=== PATIENT | male | born 1965 | race African-American/Black ===

== ENCOUNTER 2020-08-28 18:02 | Inpatient (IN) | payer MEDICARE, MEDICAID ==
[~2020-08-28] VITALS: Ht 185.4 cm; Wt 104.3 kg
--- NOTE | 2020-08-28 09:25 | NUR ---
NURSE NOTES: Received hand-off report from HANSA Orellana RN. Patient arrived to tele 214-1 without any incident, able to ambulate, steady gait with some SOB, lung sounds rhonchi throughout lung perkins, applied 4L NC, oxygen saturation 95%, BP: 112/71, HR: 108, respirations: 18. Alert and oriented x4, weak 3/5 strength bilateral feet, 3/5 strength bilateral hands. Applied groundwater monitoring technician and IV on right arm 20g patent, flushing, no bleeding, no infiltration, no pain, no tenderness. Will contact Dr. Peres of patient arrival and admission orders. Addendum: 08/28/20 at 2229 by Teresa Crum RN This was suppose to be timed today at 21:25.
[2020-08-28 18:30] VITALS: BP 136/79
--- NOTE | 2020-08-28 18:30 | NUR ---
ED Nurse Note: Pt BIBA 68 for SOB placed on NC, 92% 5L NC. Pt lungs bilateral expiratory wheezing to auscultation. Pt is alert and orientedx4, ambulatory. Pt set up on monitor. IV established. Blood sent. COVID swab sent to lab,.
--- NOTE | 2020-08-28 18:53 | Emergency Room Report ---
History of Present Illness General Chief Complaint: Upper Respiratory Illness Source: EMS Present Illness HPI Disclaimer: Please note that this report is being documented using DRAGON technology. This can lead to erroneous entry secondary to incorrect interpretation by the dictating instrument. HPI: 55-year-old male history of HIV presents for evaluation of shortness of breath and fatigue. Symptoms present approximately 1 week. He reports global weakness and fatigue and hollow extremities, decreased appetite, intermittent fevers that are responding to Tylenol. Reports shortness of breath without chest pain or cough. Denies sore throat, nasal congestion, nausea, vomiting. EMS stated he was hypoxic in the low 90s and started on nasal cannula which improved his saturations. Recent travel to [place]. He notes multiple sick contacts recently. He does not believe any of them are COVID-19 positive. Patient is compliant with antiretroviral medication reports an undetectable viral load. Also treated for colon cancer status post chemo and radiation, therapy is completed. 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 EOMI. Cardiovascular: Tachycardic Resp: Increased work of breathing with mild tachypnea. Audible wheezes. 96% on 2 L nasal cannula Abdomen: Abdomen is soft, nondistended. Nontender Skin: Intact. No abrasions, laceration or rash over the exposed skin MSK: Normal tone and bulk. Moving all extremities. No obvious deformity. Neuro: Awake and alert. Mentating appropriately. Procedures Critical Care Time Critical Care Time Total critical care time: Approximately 45 minutes Due to a high probability of clinically significant, life threatening deterioration, the patient required the highest level of preparedness to intervene emergently and I personally spent this critical care time directly and personally managing the patient. This critical care time included obtaining a history, examining the patient, pulse oximetry, ordering and reviewing studies, ordering treatments, evaluating response to treatment and updating management plan as needed, frequent reassessment and discussion with other providers as well as arranging for ultimate disposition. This critical to care time was performed to assess and manage the high probability of life-threatening deterioration that could result in multiorgan failure. This critical care time is separate from the separately billable procedures and treating other patients. Medical Decision Making Diagnostic Impression: Primary Impression: Pneumonia Additional Impressions: Tachycardia Elevated d-dimer Elevated troponin ER Course 55-year-old male history of HIV presents for evaluation of fatigue, shortness of breath and mild hypoxia. Concern for viral syndrome, pneumonia, bronchitis, COVID-19 infection among others. He is tachycardic and requiring 2 L nasal cannula maintain oxygen saturation greater than 93%. Chest x-ray concerning for pneumonia. COVID-19 rapid test is negative. Labs show slightly elevated white count 11.3 with a neutrophil predominance. Chemistry largely within normal limits of some signs of mild dehydration. Troponin is elevated 0.116. EKG is nonischemic. Inflammatory markers elevated. Elevation in BN peptide as well. Urinalysis unremarkable. D-dimer elevated at 2.0. Patient given broad-spectrum antibiotics, Decadron, Lovenox. He will be admitted to panel physician, Dr. Peres. Laboratory Tests Test 08/28/20 18:36 08/28/20 18:49 08/28/20 21:00 White Blood Count 11.3 K/UL (4.8-10.8) H Red Blood Count 4.37 M/UL (4.70-6.10) L Hemoglobin 14.4 G/DL (14.2-18.0) Hematocrit 44.0 % (42.0-52.0) Mean Corpuscular Volume 101 FL (80-99) H Mean Corpuscular Hemoglobin 32.9 PG (27.0-31.0) H Mean Corpuscular Hemoglobin Concent 32.7 G/DL (32.0-36.0) Red Cell Distribution Width 14.4 % (11.6-14.8) Platelet Count 199 K/UL (150-450) Mean Platelet Volume 8.1 FL (6.5-10.1) Neutrophils (%) (Auto) 78.5 % (45.0-75.0) H Lymphocytes (%) (Auto) 11.2 % (20.0-45.0) L Monocytes (%) (Auto) 8.8 % (1.0-10.0) Eosinophils (%) (Auto) 0.3 % (0.0-3.0) Basophils (%) (Auto) 1.2 % (0.0-2.0) Prothrombin Time 15.4 SEC (9.30-11.50) H Prothrombin Time INR 1.4 (0.9-1.1) H Activated Partial Thromboplast Time 33 SEC (23-33) D-Dimer 2.01 mg/L FEU (0.00-0.49) H Sodium Level 130 MMOL/L (136-145) L Potassium Level 3.3 MMOL/L (3.5-5.1) L Chloride Level 95 MMOL/L (98-107) L Carbon Dioxide Level 24 MMOL/L (21-32) Anion Gap 11 mmol/L (5-15) Blood Urea Nitrogen 9 mg/dL (7-18) Creatinine 1.3 MG/DL (0.55-1.30) Estimated Glomerular Filtration Rate 57.7 mL/min (>60) Glucose Level 129 MG/DL (74-106) H Calcium Level 8.7 MG/DL (8.5-10.1) Magnesium Level 1.8 MG/DL (1.8-2.4) Ferritin 1678 NG/ML (8-388) H Total Bilirubin 1.0 MG/DL (0.2-1.0) Aspartate Amino Transferase (AST) 28 U/L (15-37) Alanine Aminotransferase (ALT) 14 U/L (12-78) Alkaline Phosphatase 145 U/L (46-116) H Lactate Dehydrogenase 487 U/L (81-234) H Total Creatine Kinase 186 U/L (26-308) Creatine Kinase MB 2.3 NG/ML (0.0-3.6) Creatine Kinase MB Relative Index 1.2 Troponin I 0.116 ng/mL (0.000-0.056) C-Reactive Protein, Quantitative 48.4 mg/dL (0.00-0.90) H Pro-B-Type Natriuretic Peptide 7198 pg/mL (0-125) H Total Protein 7.6 G/DL (6.4-8.2) Albumin 2.6 G/DL (3.4-5.0) L Globulin 5.0 g/dL Lipase 81 U/L (73-393) Lactic Acid Level 1.50 mmol/L (0.4-2.0) Urine Color Yellow Urine Appearance Clear Urine pH 6 (4.5-8.0) Urine Specific [place] 1.005 (1.005-1.035) Urine Protein 2+ (NEGATIVE) H Urine Glucose (UA) Negative (NEGATIVE) Urine Ketones Negative (NEGATIVE) Urine Blood 1+ (NEGATIVE) H Urine Nitrite Negative (NEGATIVE) Urine Bilirubin Negative (NEGATIVE) Urine Urobilinogen 4 MG/DL (0.0-1.0) H Urine Leukocyte Esterase 1+ (NEGATIVE) H Urine RBC 0-2 /HPF (0 - 0) H Urine WBC 0-2 /HPF (0 - 0) Urine Squamous Epithelial Cells Occasional /LPF Urine Bacteria Occasional /HPF (NONE) Microbiology Date/Time Source Procedure Growth Status 08/28/20 18:39 Nasopharynx SARS-CoV-2 RdRp Gene Assay - Final Complete EKG Diagnostic Results Troponin ordered: Yes When was troponin ordered?: Aug 28, 2020 EKG Time: 18:53 Rate: tachycardiac Rhythm: NSR ST Segments: no acute changes Other Impression Sinus tachycardia with a slight rightward axis Rhythm Strip Diag. Results Rhythm Strip Time: 18:53 EP Interpretation: yes Rate: 120s Rhythm: NSR, no PVC's, no ectopy Chest X-Ray Diagnostic Results Chest X-Ray Diagnostic Results : Chest X-Ray Ordered: Yes # of Views/Limited/Complete: 1 View Indication: Shortness of Breath EP Interpretation: Yes Interpretation: other - Bilateral patchy opacities consistent with pneumonia Impression: Other - Bilateral pneumonia Electronically Signed by: Electronically signed by Dr. Parker Srivastava Last Vital Signs Date Time Temp Pulse Resp B/P (MAP) Pulse Ox O2 Delivery O2 Flow Rate FiO2 08/28/20 17:57 98.2 120 16 142/80 (100) 93 Room Air Disposition: ADMITTED INPATIENT Condition: Serious Parker Srivastava MD Aug 28, 2020 18:53
[2020-08-28] MEDS ORDERED: dexAMETHasone 10mg/ml Inj IV ONE (19:00)
[2020-08-28 19:03] LABS: BASOPHILS % (AUTO) 1.2 % (0.0-2.0); EOSINOPHILS % (AUTO) 0.3 % (0.0-3.0); HEMOGLOBIN 14.4 G/DL (14.2-18.0); LYMPHOCYTES % (AUTO) 11.2 % (20.0-45.0); MEAN CORPUSCULAR VOLUME 101 FL (80-99); MONOCYTES % (AUTO) 8.8 % (1.0-10.0); NEUTROPHILS % (AUTO) 78.5 % (45.0-75.0); PLATELET COUNT 199 K/UL (150-450); RED BLOOD COUNT 4.37 M/UL (4.70-6.10); RED CELL DISTRIBUTION WIDTH 14.4 % (11.6-14.8); WHITE BLOOD COUNT 11.3 K/UL (4.8-10.8)
[2020-08-28 19:13] LABS: ANION GAP 11 mmol/L (5-15); BLOOD UREA NITROGEN 9 mg/dL (7-18); CALCIUM 8.7 MG/DL (8.5-10.1); CARBON DIOXIDE 24 MMOL/L (21-32); CHLORIDE 95 MMOL/L (98-107); CREATININE 1.3 MG/DL (0.55-1.30); POTASSIUM 3.3 MMOL/L (3.5-5.1); SODIUM 130 MMOL/L (136-145)
[2020-08-28 19:17] LABS: INR 1.4 (0.9-1.1)
[2020-08-28 19:19] LABS: ALANINE AMINOTRANSFERASE 14 U/L (12-78); ALBUMIN 2.6 G/DL (3.4-5.0); ALKALINE PHOSPHATASE 145 U/L (46-116); ASPARTATE AMINO TRANSFERASE 28 U/L (15-37)
[2020-08-28] MEDS ORDERED: Piperacillin/Tazobactam 3.375 GM in NS 110 ML IVPB ONE (19:30)
--- NOTE | 2020-08-28 19:30 | NUR ---
ED Nurse Note: received patient from rebecca white. patient resting in bed with no acute distress. vitals stable to baseline. discussed plan of care with patient; aware of pending admission.
[2020-08-28 19:34] LABS: CKMB 2.3 NG/ML (0.0-3.6)
[2020-08-28 20:30] VITALS: BP 122/76
--- NOTE | 2020-08-28 21:00 | NUR ---
ED Nurse Note: urine collected; sent down to lab.
[2020-08-28 21:19] LABS: APPEARANCE,URINE CLEAR; BILIRUBIN, URINE NEGATIVE (NEGATIVE); GLUCOSE, URINE (UA) NEGATIVE (NEGATIVE); KETONES,URINE NEGATIVE (NEGATIVE); LEUKOCYTE ESTERASE ,URINE 1+ (NEGATIVE); NITRITE,URINE NEGATIVE (NEGATIVE); PH,URINE 6 (4.5-8.0); PROTEIN,URINE 2+ (NEGATIVE); UROBILINOGEN,URINE 4 MG/DL (0.0-1.0)
[2020-08-28 21:20] LABS: COLOR,URINE YELLOW
[2020-08-28] MEDS ORDERED: KLONOPIN0.5 MG ORAL (21:20)
[2020-08-28] MEDS ORDERED: PREZCOBIX 8001 EACH PO (21:20)
[2020-08-28] MEDS ORDERED: BACTRIM DS TAB1 EAC1 ORAL (21:20)
[2020-08-28] MEDS ORDERED: GABAPENTIN100 MG ORAL (21:20)
[2020-08-28] MEDS ORDERED: AMBIEN5 MG ORAL (21:20)
--- NOTE | 2020-08-28 21:20 | NUR ---
TRANSFER TO FLOOR: Patient transferred to [facility] 219-2 as ordered, per aby weston. Report given to oswaldo white. patient stable for transport. transferred to unit via gurney with 2 rn. belongings and admission packet sent with patient.
--- NOTE | 2020-08-28 21:25 | NUR ---
NURSE NOTES: Received hand-off report from Esteban ED RN. Patient arrived to tele 214-1 without any incident, able to ambulate, steady gait with some SOB, lung sounds rhonchi throughout lung perkins, applied 4L NC, oxygen saturation 95%, BP: 112/71, HR: 108, respirations: 18. Alert and oriented x4, weak 3/5 strength bilateral feet, 3/5 strength bilateral hands. Applied shoe sprayer and IV on right arm 20g patent, flushing, no bleeding, no infiltration, no pain, no tenderness. Will contact Dr. Peres of patient arrival and admission orders.
[2020-08-28 21:30] VITALS: BP 122/76
--- NOTE | 2020-08-28 21:45 | NUR ---
NURSE NOTES: Notified Dr. Peres regarding new admission. Awaiting admission orders. Requested oxygen order and PRN tylenol for complaints of history of intermittent fever.
[2020-08-28] MEDS ORDERED: D5 1/2NS 1,000 ML IV SCH (22:15)
--- NOTE | 2020-08-28 22:22 | NUR ---
NURSE NOTES: Patient complains that he wants to leave AMA. He stated "I have been telling the nurses down in the ED that I wanted to be transferred to [facility]. I have waited down there for four hours and I do not want to stay here. I want to be transferred out." I told him he needs to signs AMA paper. Noted and will carry out.
[2020-08-28] MEDS ORDERED: Enoxaparin 100mg Inj SUBQ SCH (22:30)
--- NOTE | 2020-08-28 22:33 | NUR ---
NURSE NOTES: Patient refused ordered medications, insisted that he be transferred to [facility] now. Patient claimed that he was kept waiting in the ED and told the ED nurses downstairs that he would like to leave and be transfered to [facility]. Called Dr. Peres three times and left a message regarding this patient's insistence on leaving despite explaining the risks and consequences involved in leaving the hospital at this time, the benefits of continued treatment and hospitalization and the alternatives. Patient still insisted on leaving AMA, patient signed AMA paper, linen room houseperson was removed, cleaned and given to Roberto thermal technician, IV 20g on right forearm was removed, tape and gauze applied, skin intact, no more bleeding, and patient left the premises without any incident. Patient, however, refused to have us remove his patient ID band.
--- NOTE | 2020-08-29 12:15 | NUR ---
CASE MANAGEMENT: Faxed clinical info (face sheet/ ER MD notes/ lab and imaging reports) to [facility] Dept @ [phone].
--- NOTE | 2020-08-30 06:19 | Diagnostic Imaging Report ---
EXAM: XR Chest, 1 View CLINICAL HISTORY: SOB TECHNIQUE: Frontal view of the chest. COMPARISON: No relevant prior studies available. FINDINGS: Lungs: Some patchy areas of increased hazy opacities are suspected in the lungs. An acute infectious/inflammatory process should be considered. Pleural space: No definite plain film evidence for pneumothorax. Heart: Unremarkable. No cardiomegaly. Mediastinum: Unremarkable. Bones/joints: Degenerative changes of the thoracic spine. Tubes, lines and devices: Left-sided PICC line with tip projected in the region of the superior vena cava. IMPRESSION: Some patchy areas of increased hazy opacities are suspected in the lungs. An acute infectious/inflammatory process should be considered.
--- NOTE | 2020-08-30 15:59 | Discharge Summary ---
Discharge Summary Discharge Summary _ DATE OF ADMISSION: 08/28/2020 DATE OF DISCHARGE: 08/28/2020 Patient left AGAINST MEDICAL ADVICE REASON FOR ADMISSION: 55 years old male with past medical history of HIV, colon cancer, status post chemotherapy and radiation, presented due to shortness of breath and fatigue. Symptoms started about 1 week ago. Patient reported generalized weakness and fatigue, decreased appetite, and intermittent fevers responding to Tylenol. Patient reported shortness of breath without chest pain or cough. He denied sore throat or nasal congestion. No abdominal pain, no nausea , vomiting or diarrhea. According to paramedics, patient was hypoxic and started on nasal cannula. Patient reported recent traveling to [place] . Patient reported multiple sick contacts recently. He did not believe that any of them were COVID positive. Patient reported being compliant with antiretroviral therapy and undetected viral load. Upon evaluation vital signs were stable. Rapid COVID-19 was negative. Laboratory work-up revealed mild leukocytosis WBC 11.3, stable hemoglobin and hematocrit. Potassium 3.3, sodium 130. Glucose 129. Ferritin 168, D -dimer 2.01, LDH 487, CRP 48.2. Troponin 0.116. EKG revealed sinus rhythm , no acute ischemic changes. Urinalysis revealed +1 leukocyte esterase , no pyuria and occasional bacteria. Chest x-ray revealed patchy areas of increased hazy opacity. Patient received empiric antibiotic and admitted for further management. HOSPITAL COURSE: Patient admitted to telemetry floor. Telemetry showed sinus rhythm no acute ischemic changes. Patient started on antiplatelet therapy with aspirin. Shortly after he admitted on the floor, he decided to leave AGAINST MEDICAL ADVICE. Patient verbalized that he wanted to go to [facility] for further management The risks and consequences of signing AGAINST MEDICAL ADVICE were discussed with patient in detail. Patient verbalized understanding, nevertheless signed AMA form and left. FINAL DIAGNOSES: Pneumonia Tachycardia Elevated troponin Elevated d-dimer I have been assigned to dictate discharge summary for this account. I was not involved in the patient's management. Nini Conrad NP Aug 30, 2020 15:59
--- NOTE | 2020-08-31 15:55 | NUR ---
INSURANCE DC SUMMARY FAXED TO [facility] [phone] Pati CONTRERAS [phone]
== END 2020-08-28 22:33 | disposition left against medical advice (07) | DRG 195 ==
LOC: EDBD 18:02 → EDBEDREQ 18:56 → EMR 19:25 → 2E 19:58 → EDBEDREQ 20:03
DX: J18.9 Pneumonia, unspecified organism (principal); R00.0 Tachycardia, unspecified; Z85.038 Personal history of other malignant neoplasm of large intestine; Z92.3 Personal history of irradiation
CPT/HCPCS: 36415; 71045; 80053; 81003; 82550; 82553; 82728; 83605; 83615; 83690; 83735; 83880; 84484; 85025; 85379; 85610; 85730; 86140; 87040; 96365; 96375; 99291; U0002